=== PATIENT | male | born 1970 | race Caucasian/White ===

== ENCOUNTER 2023-06-12 06:29 | Day surgery (SDC) | payer BC ==
[~2023-06-12] VITALS: Ht 177.8 cm; Wt 109.4 kg
[2023-06-12] MEDS ORDERED: FARXIGA10 PO (11:24)
[2023-06-12] MEDS ORDERED: CRESTOR 10MG10 MG PO (11:24)
[2023-06-12] MEDS ORDERED: GLUCOPHAGE500 MG/TAB PO (11:25)
[2023-06-12 11:59] VITALS: BP 118/79; PULSE 63; TEMP 97.1
[2023-06-12 13:20] VITALS: BP 94/65; PULSE 67; TEMP 97
--- NOTE | 2023-06-12 13:20 | NUR ---
PATIENT AMBULATED WITH STEADY GAIT TO THE CHAIR, ALERT AND ORIENTED X3. DENIES PAIN, NAUSEA AND SHORTNESS OF BREATH. BREATHING REGULAR AND UNLABORED ON ROOM AIR. SKIN WARM AND DRY. NURSE HANDOFF COMPLETED IN ROOM. SEE CHART FOR VITALS. PATIENT HAD WATER AND A MUFFIN. BOTH FOOD AND DRINK TOLERATED WELL. CALL LIGHT IN REACH. PATIENT SPOUSE, PRICE, PRESENT IN ROOM.
[2023-06-12 13:42] VITALS: BP 113/70; PULSE 61
[2023-06-12 13:45] VITALS: BP 104/67; PULSE 62
--- NOTE | 2023-06-12 14:00 | NUR ---
1341: DISCHARGE TEACHING COMPLETED WITH PRINTED EDUCATION AND INSTRUCTIONS SENT HOME WITH PATIENT. PATIENT AND SPOUSE VERBALIZED UNDERSTANDING OF TEACHING. IV REMOVED. GAUZE AND COBAN PLACED OVER SITE. PATIENT DISCHARGED HOME WITH SPOUSE, PRICE, TRANSPORT.
== END 2023-06-12 14:00 | disposition home or self-care (01) ==
LOC: SDCO 06:29
DX: Z12.11 Encounter for screening for malignant neoplasm of colon (principal); D12.5 Benign neoplasm of sigmoid colon; Z87.891 Personal history of nicotine dependence
CPT/HCPCS: J2704; J7120